=== PATIENT | female | born 1990 | race Caucasian/White ===

== ENCOUNTER 2024-08-02 02:32 | Emergency (ER) | payer OTHER ==
[2024-08-02] MEDS ORDERED: NA CHLORIDE 0.9% 1,000 ML ONE ×2 (03:20→03:58)
[2024-08-02] MEDS ORDERED: FAMOTIDINE 20 MG/2 ML VIAL IV ONE (03:20)
[2024-08-02 03:49] LABS: Specific Gravity 1.029 (1.005-1.030)
[2024-08-02 03:51] LABS: Specific Gravity 1.029 (1.005-1.030); Sqamous Epithelial <5 /HPF (None Seen); Urine Bacteria None Seen /HPF (<20); Urine Bilirubin NEGATIVE (Negative); Urine Blood 3+ (OVER) (Negative); Urine Clarity Turbid (Clear); Urine Color Yellow (Yellow); Urine Culture Reflex Order NOT NEEDED; Urine Glucose NEGATIVE (Negative); Urine Ketones NEGATIVE (Negative); Urine Microscopic Reflex YN ORDER UMIC; Urine Mucus Slight /HPF (None Seen); Urine Nitrite NEGATIVE (Negative); Urine Protein TRACE (Negative); Urine RBC >50 /HPF (None Seen); Urine Urobilinogen Normal (Normal); Urine WBC <5 /HPF (<5)
[2024-08-02] MEDS ORDERED: KETOROLAC 30 MG/ML INJ ONE (03:56)
[2024-08-02] MEDS ORDERED: MORPHINE 4 MG/ML SYR ONE (03:57)
[2024-08-02 04:05] LABS: Albumin 3.9 g/dL (3.4-5.0); Albumin/Globulin Ratio 0.8 (1.1-1.8); Anion Gap 7.2 mEq/L (5.0-15.0); Bilirubin Total 0.6 mg/dL (0.2-1.0); Globulin 4.9 g/dL (2.3-3.5); Potassium 3.2 mEq/L (3.5-5.1); Protein, Total 8.8 g/dL (6.4-8.2)
[2024-08-02 04:11] LABS: Absolute Eosinophils 0.1 K/uL (0-0.5); Absolute Lymphocytes (CBC) 1.7 K/uL (0.7-4.9); Absolute Monocytes 0.6 K/uL (0.1-1.3); Absolute Neutrophil 3.5 K/uL (1.8-8.0); Basophils % 0.3 % (0-1.3); Eosinophils % 0.9 % (0-4.4); Hematocrit 41.4 % (36.0-45.0); Lymphocytes % 29.1 % (15.3-44.8); MCH 29.2 pg (27.0-35.0); MCHC 33.9 g/dL (32.0-36.0); MCV 86.2 fL (80-100); MPV 8.8 fL (7.6-11.3); Neutrophils % 59.7 % (41.7-73.7); Nucleated Red Blood Cells % 0.3 % (0-0); Platelets 248 thou/uL (152-406); Red Cell Distribution Width 13.5 % (12.1-15.2)
--- NOTE | 2024-08-02 05:29 | RAD REPORT ---
EXAM: CT Abdomen and Pelvis With Intravenous Contrast CLINICAL HISTORY: The patient is 33 years old and is Female; ABD PAIN TECHNIQUE: Axial computed tomography images of the abdomen and pelvis with intravenous contrast. Sagittal and coronal reformatted images were created and reviewed. This CT exam was performed using one or more of the following dose reduction techniques: automated exposure control, adjustmen t of the mA and/or kV according to patient size, and/or use of iterative reconstruction technique. COMPARISON: No relevant prior studies available. FINDINGS: Lung bases: Unremarkable. No mass. No consolidation. ABDOMEN: Liver: Unremarkable. No mass. Gallbladder and bile ducts: Unremarkable. No calcified stones. No ductal dilation. Pancreas: Unremarkable. No mass. No ductal dilation. Spleen: Unremarkable. No splenomegaly. Adrenals: Unremarkable. No mass. Kidneys and ureters: 4 mm right UVJ stone. Mild right hydroureteronephrosis. Stomach and bowel: Sigmoid diverticula. No obstruction. No mucosal thickening. PELVIS: Appendix: No findings to suggest acute appendicitis. Bladder: Unremarkable. Reproductive: Unremarkable as visualized. ABDOMEN and PELVIS: Intraperitoneal space: Small amount of free fluid in the pelvis which may be physiologic. No free air. Bones/joints: No acute fracture. No dislocation. Soft tissues: Unremarkable. Vasculature: Unremarkable. No abdominal aortic aneurysm. Lymph nodes: Unremarkable. No enlarged lymph nodes. IMPRESSION: 4 mm right UVJ stone. Mild right hydroureteronephrosis. Electronically signed by: Bear Cosme MD 08/02/2024 05:26 AM [facility] 8 Due to temporary technical issues with the [employer] reporting system, reports are being twin d by the in-house radiologist without review as a courtesy to ensure prompt reporting the interpreting radiologist is fully responsible for the content of the report. Transcribed Date/Time: 08/02/2024 5:29 AM
[2024-08-02] MEDS ORDERED: TAMSULOSIN 0.4 MG SR CAP ONE (05:58)
--- NOTE | 2024-08-02 06:02 | EDPHYS ---
Physician Documentation [facility] Name: Angelita Overton Age: 33 yrs Sex: Female : 1990 Arrival Date: 08/02/2024 Time: 02:32 Bed 14 Private MD: ED Physician You Paez HPI: 08/02 02:42 This 33 yrs old Female presents to ER via Unassigned with complaints of sp4 Abdominal Pain. 08/03 01:30 33-year-old female presents with complaint of abdominal pain right sided abdominal pain sp4 , right lower abdomen. 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 - Infectious Disease History:: Denies. - Social history:: Smoking status: Patient denies any tobacco usage or history of. - Family history:: not pertinent. ROS: 08/03 01:30 Constitutional: Negative for fever, chills, and weight loss, Abdomen/GI: Positive right sp4 lower abdominal pain All other systems are negative, Exam: 01:30 Constitutional: This is a well developed, well nourished patient who is awake, alert, sp4 and in no acute distress. Head/Face: Normocephalic, atraumatic. Eyes: Pupils equal round and reactive to light, extra-ocular motions intact. Lids and lashes normal. Conjunctiva and sclera are not injected. Cornea within normal limits. Periorbital areas with no swelling, redness, or edema. ENT: Nares patent. No nasal discharge, no septal abnormalities noted. Tympanic membranes are normal and external auditory canals are clear. Oropharynx with no redness, swelling, or masses, exudates, or evidence of obstruction, uvula midline. Mucous membranes moist. Neck: Trachea midline, no thyromegaly or masses palpated, and no cervical lymphadenopathy. Supple, full range of motion without nuchal rigidity, or vertebral point tenderness. Chest/axilla: Normal chest wall appearance and motion. Nontender with no deformity. No lesions are appreciated. Cardiovascular: Regular rate and rhythm with a normal S1 and S2. No gallops, murmurs, or rubs. Normal PMI, no JVD. No pulse deficits. Respiratory: Lungs have equal breath sounds bilaterally, clear to auscultation and percussion. No rales, rhonchi or wheezes noted. No increased work of breathing, no retractions or nasal flaring. Abdomen/GI: Soft, with normal bowel sounds. No distension or tympany. No guarding or rebound. No evidence of tenderness throughout. Back: No spinal tenderness. No costovertebral tenderness. Skin: Warm, dry with normal turgor. Normal color with no rashes, no lesions, and no evidence of cellulitis. MS/ Extremity: Pulses equal, no cyanosis. Neurovascular intact. Full, normal range of motion. Neuro: Awake and alert, GCS 15, oriented to person, place, time, and situation. Cranial nerves II-XII grossly intact. Motor strength 5/5 in all extremities. Sensory grossly intact. Psych: Awake, alert, with orientation to person, place and time. Behavior, mood, and affect are within normal limits Vital Signs: 08/02 02:53 BP 139 / 93; Pulse 87; Resp 16; Temp 97.6(O); Pulse Ox 100% on R/A; Pain 7/10; kl 03:41 BP 130 / 88; Pulse 74; Resp 18; Pulse Ox 100% on R/A; ay 04:51 BP 142 / 87; Pulse 88; Resp 18; Pulse Ox 100% on R/A; ay 06:02 BP 137 / 88; Pulse 62; Resp 18; Pulse Ox 100% on R/A; ay 02:53 Pain Scale: Adult kl [place] Coma Score: 03:41 Eye Response: spontaneous(4). Motor Response: obeys commands(6). Verbal Response: ay oriented(5). Total: 15. 08/03 01:30 Eye Response: spontaneous(4). Motor Response: obeys commands(6). Verbal Response: sp4 oriented(5). Total: 15. MDM: 08/02 02:44 Medical Screening Exam initiated sp4 05:59 ED course: EXAM: CTAbdomen and Pelvis With Intravenous Contrast CLINICAL HISTORY: The sp4 patient is 33 years old and is Female; ABD PAIN TECHNIQUE: Axial computed tomography images of the abdomen and pelvis with intravenous contrast. Sagittal and coronal reformatted images were created and reviewed. This CT exam was performed using one or more of the following dose reduction techniques: automated exposure control, adjustment of the mA and/or kV according to patient size, and/or use of iterative reconstruction technique. COMPARISON: No relevant prior studies available. FINDINGS: Lung bases: Unremarkable. No mass. No consolidation. ABDOMEN: Liver: Unremarkable. No mass. Gallbladder and bile ducts: Unremarkable. No calcified stones. No ductal dilation. Pancreas: Unremarkable. No mass. No ductal dilation. Spleen: Unremarkable. No splenomegaly. Adrenals: Unremarkable. No mass. Kidneys and ureters: 4 mm right UVJ stone. Mild right hydroureteronephrosis. Stomach and bowel: Sigmoid diverticula. No obstruction. No mucosal thickening. PELVIS: Appendix: No findings to suggest acute appendicitis. Bladder: Unremarkable. Reproductive: Unremarkable as visualized. ABDOMEN and PELVIS: Intraperitoneal space: Small amount of free fluid in the pelvis which may be physiologic. No free air. Bones/joints: No acute fracture. No dislocation. Soft tissues: Unremarkable. Vasculature: Unremarkable. No abdominal aortic aneurysm. Lymph nodes: Unremarkable. No enlarged lymph nodes. IMPRESSION: 4 mm right UVJ stone. Mild right hydroureteronephrosis. . 08/03 01:30 Differential diagnosis: appendicitis, bowel obstruction, cholecystitis, Cholelithiasis, sp4 diverticulitis, Dysmenorrhea. Data reviewed: vital signs, nurses notes, lab test result(s), CBC, electrolytes, hepatic panel, urinalysis, radiologic studies, CT scan. Consideration of Admission/Observation Escalation of care including admission/observation considered. ED course: Stable for discharge home.. 01:32 ED course: Patient prescribed [place] 10 1 tab every 6 hours as needed pain total of 20 sp4 tabs. 08/02 02:43 Order name: CBC with Diff; Complete Time: 05:52 sp4 08/02 02:43 Order name: CMP; Complete Time: 05:52 sp4 08/02 02:43 Order name: Lipase; Complete Time: 05:52 sp4 08/02 02:43 Order name: Test, Urine; Complete Time: 05:52 sp4 08/02 02:43 Order name: Urinalysis w/ reflexes; Complete Time: 05:52 sp4 08/02 03:38 Order name: CT Abd/Pelvis - IV Contrast Only sp4 08/02 02:43 Order name: IV Saline Lock; Complete Time: 03:34 sp4 08/02 02:43 Order name: Labs collected and sent; Complete Time: 03:34 sp4 Administered Medications: 08/02 06:17 Discontinued: ns 0.9% 1000 ml IV at 125 ml/hr continuous ay 03:34 Drug: Famotidine IVP 20 mg IVP once; dilute with 10 mL 0.9% NaCl; give over 2 minutes bm8 Route: IVP; Site: right antecubital; 04:48 Follow up: Response: No adverse reaction ay 03:34 Drug: NS 0.9% IV 1000 ml IV at 1 bolus Per protocol; to be given as a bolus over 60 bm8 minutes Route: IV; Rate: 1 bolus; Site: right antecubital; 05:22 Follow up: IV Status: Completed infusion; IV Intake: 1000ml ay 04:16 Drug: Ketorolac IVP 30 mg IVP once Route: IVP; Site: right antecubital; ay 04:34 Follow up: Response: No adverse reaction ay 05:23 Follow up: Response: Pain is decreased ay 04:17 Drug: morphine IVP or IV 4 mg IVP once over 4 mins Route: IVP; Infused Over: 4 mins; ay Site: right antecubital; 04:34 Follow up: Response: No adverse reaction ay 05:23 Follow up: Response: Pain is decreased ay 19:49 Follow up: Response: No adverse reaction; Pain is decreased bm8 05:21 Drug: NS 0.9% IV 1000 ml IV at 125 ml/hr continuous Route: IV; Rate: 125 ml/hr; Site: ay right antecubital; 05:28 Follow up: Response: No adverse reaction ay 06:23 Follow up: IV Status: Completed infusion; IV Intake: 250ml ay 06:01 Drug: Flomax PO 0.8 mg PO once Route: PO; ay 06:15 Follow up: Response: No adverse reaction ay Disposition Summary: 08/02/24 06:02 Discharge Ordered Notes: Location: Home sp4 Problem: new sp4 Symptoms: have improved sp4 Condition: Fair sp4 Diagnosis - Acute right ureteral calculus with right hydronephrosis sp4 Followup: sp4 - With: Private Physician - When: 7 - 10 days - Reason: Recheck today's complaints Discharge Instructions: - Discharge Summary Sheet sp4 - Kidney Stones, [id number] sp4 Forms: - Patient Portal Instructions sp4 Prescriptions: - Flomax 0.4 mg Oral capsule - take 1 capsule ORAL route daily for 10 days; 10 capsule; Refills: 0, Product sp4 Selection Permitted - Ibuprofen 800 mg Oral Tablet - take 1 tablet ORAL route every 8 hours As needed take with food; 30 tablet; sp4 Refills: 0, Product Selection Permitted - ondansetron 8 mg Oral Tablet,disintegrating - take 1 tablet ORAL route every 8 hours PRN nausea; 30 tablet; Refills: 0, sp4 Product Selection Permitted Signatures: Dispatcher [employer] EDDinorah Lockwood, RN RN You Lindsey MD MD sp4 Bill Mata RN RN bm8 Dwayne Shi RN RN ay Corrections: (The following items were deleted from the chart) 02:44 02:44 CBC+H.LAB.BRZ ordered. EDMS EDMS 02:44 02:44 COMPREHENSIVE METABOLIC PANEL+C.LAB.BRZ ordered. EDMS EDMS 02:44 02:44 LIPASE+C.LAB.BRZ ordered. EDMS EDMS 02:44 02:44 Test, Urine+UC.LAB.BRZ ordered. EDMS EDMS 02:44 02:44 Urinalysis+U.LAB.BRZ ordered. EDMS EDMS
--- NOTE | 2024-08-02 06:02 | ER ---
Nurse's Notes [facility] Name: Angelita Overton Age: 33 yrs Sex: Female : 1990 Arrival Date: 08/02/2024 Time: 02:32 Bed 14 Private MD: Diagnosis: Acute right ureteral calculus with right hydronephrosis Presentation: 08/02 02:53 Chief complaint: Patient states: right lower quadrant pain since yesterday positive for kl nausea denies urinary symptoms. Coronavirus screen: Vaccine status: Patient reports receiving the 2nd dose of the covid vaccine. Ebola Screen: Patient negative for fever greater than or equal to 101.5 degrees Fahrenheit, and additional compatible Ebola Virus Disease symptoms. Initial Sepsis Screen: Does the patient meet any 2 criteria? No. Patient's initial sepsis screen is negative. Does the patient have a suspected source of infection? No. Patient's initial sepsis screen is negative. Risk Assessment: Do you want to hurt yourself or someone else? Patient reports no desire to harm self or others. 02:53 Method Of Arrival: Ambulatory kl 02:53 Acuity: ANDRÉS 3 kl 02:57 Note pt 3 months post . kl 06:20 Onset of symptoms is unknown. ay Triage Assessment: 06:20 General: Appears uncomfortable. 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 - Infectious Disease History:: Denies. - Social history:: Smoking status: Patient denies any tobacco usage or history of. - Family history:: not pertinent. Screenin:41 [facility] ED Fall Risk Assessment (Adult) History of falling in the last 3 months, ay including since admission No falls in past 3 months (0 pts) Confusion or Disorientation No (0 pts) Intoxicated or Sedated No (0 pts) Impaired Gait No (0 pts) Mobility Assist Device Used No (0 pt) Altered Elimination No (0 pt) Score/Fall Risk Level 0 - 2 = Low Risk Oriented to surroundings, Maintained a safe environment, Educated pt \T\ family on fall prevention, incl call for assistance when getting out of bed. Abuse screen: Denies threats or abuse. Nutritional screening: No deficits noted. Tuberculosis screening: No symptoms or risk factors identified. Assessment: 03:41 General: Appears uncomfortable, obese, Behavior is calm, cooperative. Pain: Complains ay of pain in abdomen Pain currently is 7 out of 10 on a pain scale. Neuro: Level of Consciousness is awake, alert, obeys commands, Oriented to person, place, time, situation, Information Systems Specialist are equal bilaterally Gait is steady, Speech is normal. Cardiovascular: Heart tones S1 S2. Respiratory: Airway is patent Respiratory effort is even, unlabored. GI: Bowel sounds present X 4 quads. Abd is soft Abdomen is tender to palpation. : No signs and/or symptoms were reported regarding the genitourinary system. EENT: No signs and/or symptoms were reported regarding the EENT system. Derm: No signs and/or symptoms reported regarding the dermatologic system. Musculoskeletal: No signs and/or symptoms reported regarding the musculoskeletal system. 03:49 Reassessment: pt with a c/o abd pain, alert and oriented x4, on RA, bowel sounds in all ay quadrants, pain score 7/10. Call light within reach. No distress noted. 04:52 Reassessment: Patient states feeling better. Pain: Pain currently is 2 out of 10 on a ay pain scale. 06:02 Reassessment: Patient appears in no apparent distress at this time. ay Vital Signs: 02:53 BP 139 / 93; Pulse 87; Resp 16; Temp 97.6(O); Pulse Ox 100% on R/A; Pain 7/10; kl 03:41 BP 130 / 88; Pulse 74; Resp 18; Pulse Ox 100% on R/A; ay 04:51 BP 142 / 87; Pulse 88; Resp 18; Pulse Ox 100% on R/A; ay 06:02 BP 137 / 88; Pulse 62; Resp 18; Pulse Ox 100% on R/A; ay 02:53 Pain Scale: Adult kl [place] Coma Score: 03:41 Eye Response: spontaneous(4). Motor Response: obeys commands(6). Verbal Response: ay oriented(5). Total: 15. 08/03 01:30 Eye Response: spontaneous(4). Motor Response: obeys commands(6). Verbal Response: sp4 oriented(5). Total: 15. ED Course: 08/02 02:35 Patient arrived in ED. gm2 02:42 You Paez MD is Attending Physician. sp4 02:56 Triage completed. kl 03:06 Dwayne Shi, KASEY is Primary Nurse. ay 03:41 Patient has correct armband on for positive identification. Placed in gown. Bed in low ay position. Call light in reach. Side rails up X 1. 03:41 No provider procedures requiring assistance completed. Inserted saline lock: 20 gauge ay in right antecubital area, using aseptic technique. Patient maintains SpO2 saturation greater than 95% on room air. 04:36 CT Abd/Pelvis - IV Contrast Only In Process Unspecified. EDMS 06:17 Provided Education on: Procedure Consent. ay 06:17 IV discontinued, intact, bleeding controlled, No redness/swelling at site. Pressure ay dressing applied. 06:19 Arm band placed on right wrist. ay Administered Medications: 06:17 Discontinued: ns 0.9% 1000 ml IV at 125 ml/hr continuous ay 03:34 Drug: Famotidine IVP 20 mg IVP once; dilute with 10 mL 0.9% NaCl; give over 2 minutes bm8 Route: IVP; Site: right antecubital; 04:48 Follow up: Response: No adverse reaction ay 03:34 Drug: NS 0.9% IV 1000 ml IV at 1 bolus Per protocol; to be given as a bolus over 60 bm8 minutes Route: IV; Rate: 1 bolus; Site: right antecubital; 05:22 Follow up: IV Status: Completed infusion; IV Intake: 1000ml ay 04:16 Drug: Ketorolac IVP 30 mg IVP once Route: IVP; Site: right antecubital; ay 04:34 Follow up: Response: No adverse reaction ay 05:23 Follow up: Response: Pain is decreased ay 04:17 Drug: morphine IVP or IV 4 mg IVP once over 4 mins Route: IVP; Infused Over: 4 mins; ay Site: right antecubital; 04:34 Follow up: Response: No adverse reaction ay 05:23 Follow up: Response: Pain is decreased ay 19:49 Follow up: Response: No adverse reaction; Pain is decreased bm8 05:21 Drug: NS 0.9% IV 1000 ml IV at 125 ml/hr continuous Route: IV; Rate: 125 ml/hr; Site: ay right antecubital; 05:28 Follow up: Response: No adverse reaction ay 06:23 Follow up: IV Status: Completed infusion; IV Intake: 250ml ay 06:01 Drug: Flomax PO 0.8 mg PO once Route: PO; ay 06:15 Follow up: Response: No adverse reaction ay Medication: 03:41 VIS not applicable for this client. ay Intake: 05:22 IV: 1000ml; Total: 1000ml. ay 06:23 IV: 250ml; Total: 1250ml. ay Outcome: 06:02 Discharge ordered by MD. grullon 06:17 Discharged to home ambulatory, ay 06:17 Condition: stable 06:17 Discharge instructions given to patient, Instructed on discharge instructions, follow up and referral plans. medication usage, 06:24 Patient left the ED. ay Signatures: Dispatcher [employer] Dinorah Escalona RN RN kl Potepalov, Sergey, MD MD sp4 Abida Martinez 2 Bill Mata RN RN bm8 Dwayne Shi RN RN ay Corrections: (The following items were deleted from the chart) 19:49 05:23 Response: Pain is decreased ay bm8
[2024-08-02 07:06] VITALS: TEMP 97.6; O2SAT 100
[2024-08-02 07:09] VITALS: BP 137/88
== END 2024-08-02 06:24 | disposition home or self-care (01) ==
LOC: ER 02:32
DX: N13.2 Hydronephrosis with renal and ureteral calculous obstruction (principal)
CPT/HCPCS: 96361; 85025; 81001; 36415; 81025; 83690; 80053; 74177; 96375; 96374; 99284; Q9967; J7030 ×2

== ENCOUNTER 2024-08-13 18:34 | Emergency (ER) | payer OTHER ==
[2024-08-13] MEDS ORDERED: ONDANSETRON 4 MG/2 ML VIAL ONE (19:25)
[2024-08-13] MEDS ORDERED: MORPHINE 4 MG/ML SYR ONE (19:26)
[2024-08-13] MEDS ORDERED: NA CHLORIDE 0.9% 1,000 ML ONE (19:26)
[2024-08-13 19:37] LABS: Absolute Lymphocytes (CBC) 2.1 K/uL (0.7-4.9); Absolute Monocytes 0.7 K/uL (0.1-1.3); Absolute Neutrophil 5.3 K/uL (1.8-8.0); Basophils % 0.6 % (0-1.3); Eosinophils % 0.3 % (0-4.4); Hematocrit 40.2 % (36.0-45.0); Hemoglobin 13.5 g/dL (12.0-15.0); Lymphocytes % 25.4 % (15.3-44.8); MCH 28.6 pg (27.0-35.0); MCHC 33.4 g/dL (32.0-36.0); MCV 85.7 fL (80-100); MPV 7.7 fL (7.6-11.3); Monocytes % 8.7 % (3.3-12.3); Nucleated Red Blood Cells % 0.2 % (0-0); Platelets 320 thou/uL (152-406)
[2024-08-13 19:48] LABS: Specific Gravity 1.013 (1.005-1.030); Sqamous Epithelial <5 /HPF (None Seen); Urine Bacteria <20 /HPF (<20); Urine Bilirubin NEGATIVE (Negative); Urine Blood 3+ (Negative); Urine Clarity Turbid (Clear); Urine Color Light-Yellow (Yellow); Urine Culture Reflex Order NOT NEEDED; Urine Glucose NEGATIVE (Negative); Urine Ketones NEGATIVE (Negative); Urine Microscopic Reflex YN ORDER UMIC; Urine Mucus Slight /HPF (None Seen); Urine Nitrite NEGATIVE (Negative); Urine Protein NEGATIVE (Negative); Urine RBC >50 /HPF (None Seen); Urine Urobilinogen Normal (Normal); Urine WBC <5 /HPF (<5); Urine pH 5.5 (5.0-7.0)
[2024-08-13 19:57] LABS: Specific Gravity 1.013 (1.005-1.030)
--- NOTE | 2024-08-13 20:07 | RAD REPORT ---
EXAMINATION: CT Stone Protocol CLINICAL INDICATION: Female, 33 years old. ABD PAIN TECHNIQUE: CT abdomen and pelvis was performed, without IV contrast, as per department protocol. Axia l, sagittal and coronal reconstructions were obtained. One or more of the following dose reduction techniques were used: Automated exposure control, adjustment of the mA and kV according to the patien t size, and iterative reconstruction. Unless otherwise specified, incidental findings do not require dedicated imaging follow-up. COMPARISON: 08/02/2024 FINDINGS: The lack of intravenous contrast limits the sensitivity of this exam for evaluation of solid visceral organs, vascular structures, and retroperitoneum. LOWER CHEST: The visualized lung bases are clear. LIVER: Normal in size and contour. No focal lesion. BILIARY SYSTEM: No suspicious abnormalities. SPLEEN: Normal size. No focal lesion. PANCREAS: No mass, ductal dilation, or shelia-pancreatic fluid. ADRENALS: Normal; no mass. KIDNEYS AND URETERS: Normal size and contour. Mild to moderate right hydroureteronephrosis. 3-4 mm ca lculus seen previously at the vesicoureteral junction is now more medially situated, and therefore may have recently passed. No left hydronephrosis. 3 mm left interpolar nonobstructing calculus. URINARY BLADDER: Normal contour. Small calculus as above. GASTROINTESTINAL TRACT: No evidence of bowel obstruction, significant free fluid, free air or abscess . APPENDIX: Normal appendix. LYMPH NODES: No lymphadenopathy. MUSCULOSKELETAL: No acute or suspicious osseous abnormality. ADDITIONAL FINDINGS: Retroverted uterus. IMPRESSION: More medial location of the 3-4 MM calculus within the bladder, may have passed the right vesicourete ral junction. Stable mild to moderate right hydroureteronephrosis. Nonobstructing 3 mm left interpolar calculus.
[2024-08-13 20:15] LABS: Albumin 3.8 g/dL (3.4-5.0); Albumin/Globulin Ratio 0.9 (1.1-1.8); Anion Gap 9.7 mEq/L (5.0-15.0); Bilirubin Total 0.4 mg/dL (0.2-1.0); Globulin 4.2 g/dL (2.3-3.5); Potassium 3.7 mEq/L (3.5-5.1)
--- NOTE | 2024-08-13 20:27 | ER ---
Nurse's Notes [facility] Name: Angelita Overton Age: 33 yrs Sex: Female : 1990 Arrival Date: 08/13/2024 Time: 18:34 Bed 6 Private MD: Diagnosis: Calculus of kidney Presentation: 08/13 18:49 Chief complaint: Lower abdominal pain and difficulty urinating x 2 days. Recently seen hb in ED for kidney stone. Coronavirus screen: At this time, the client does not indicate any symptoms associated with coronavirus-19. Ebola Screen: No symptoms or risks identified at this time. Initial Sepsis Screen: Does the patient meet any 2 criteria? No. Patient's initial sepsis screen is negative. Does the patient have a suspected source of infection? No. Patient's initial sepsis screen is negative. Risk Assessment: Do you want to hurt yourself or someone else? Patient reports no desire to harm self or others. Onset of symptoms was August 12, 2024. 18:49 Method Of Arrival: Ambulatory hb 18:49 Acuity: ANDRÉS [address] CLERK: 20:55 unknown mt4 Historical: - Allergies: 18:52 No Known Allergies; hb - PMHx: 18:52 Hypothyroidism; hb - PSHx: 18:52 None; hb - Immunization history:: Adult Immunizations up to date. - Infectious Disease History:: Denies. - Social history:: Smoking status: Patient denies any tobacco usage or history of. Screenin:34 [facility] ED Fall Risk Assessment (Adult) History of falling in the last 3 months, mt4 including since admission No falls in past 3 months (0 pts) Confusion or Disorientation No (0 pts) Intoxicated or Sedated No (0 pts) Impaired Gait No (0 pts) Mobility Assist Device Used No (0 pt) Altered Elimination No (0 pt) Score/Fall Risk Level 0 - 2 = Low Risk. Abuse screen: Denies injuries from another. Nutritional screening: No deficits noted. Tuberculosis screening: No symptoms or risk factors identified. Exposure risk/Travel Screening: None identified. Assessment: 19:34 General: Appears in no apparent distress. comfortable, Behavior is calm, cooperative, mt4 appropriate for age. Pain: Complains of pain in pelvis Pain currently is 5 out of 10 on a pain scale. Quality of pain is described as burning, aching, pressure, Pain began since thanksgiving. Neuro: Level of Consciousness is awake, alert, obeys commands, Oriented to person, place, time, situation, Knotting Machine Operator are equal bilaterally Moves all extremities. Gait is steady, Speech is normal, Facial symmetry appears normal. Cardiovascular: Capillary refill < 3 seconds. Respiratory: Airway is patent Respiratory effort is even, unlabored, Respiratory pattern is regular, symmetrical. GI: Bowel sounds present X 4 quads. Abd is soft in suprapubic area Abdomen is tender to palpation. : Urine is clear, Reports burning with urination, pain difficulty voiding. EENT:. Derm: Skin is intact, Skin is dry, Skin is pink, warm \T\ dry. Skin temperature is warm. Musculoskeletal: Capillary refill < 3 seconds, Range of motion: intact in all extremities. Vital Signs: 18:49 BP 144 / 109; Pulse 106; Resp 16; Temp 98.1(O); Pulse Ox 100% on R/A; Weight 86.18 kg; hb Height 5 ft. 2 in. ; Pain 5/10; 19:52 BP 141 / 100; Pulse 91; Resp 18 S; Temp 97.9(O); Pulse Ox 100% on R/A; Pain 5/10; mt4 20:53 BP 130 / 89; Pulse 84; Pulse Ox 99% ; mt4 18:49 Body Mass Index 34.75 (86.18 kg, 157.48 cm) hb 18:49 Pain Scale: Adult hb 19:52 Pain Scale: Adult mt4 [place] Coma Score: 19:34 Eye Response: spontaneous(4). Motor Response: obeys commands(6). Verbal Response: mt4 oriented(5). Total: 15. ED Course: 18:36 Patient arrived in ED. mr 18:39 Jose Carlos LizetteCADEN parson [facility] kb 18:39 Moises Kennedy MD is Attending Physician. kb 18:52 Triage completed. hb 18:52 Arm band placed on. hb 19:22 CT Stone Protocol In Process Unspecified. EDMS 19:23 Pao Spears, KASEY is Primary Nurse. mt4 19:33 No provider procedures requiring assistance completed. Initial lab(s) drawn, by zaheer mcnally sent to lab. Inserted saline lock: 20 gauge in right antecubital area, using aseptic technique. Blood collected. Flushed with 10 mL NS. Patient maintains SpO2 saturation greater than 95% on room air. 19:34 No apparent distress. Resting quietly. Awaiting lab results. mt4 19:34 Patient has correct armband on for positive identification. Bed in low position. Call mt4 light in reach. Side rails up X 1. Provided Education on: pain medication . Client placed on continuous cardiac and pulse oximetry monitoring. NIBP monitoring applied. Door closed. Lights dimmed. Warm blanket given. Pillow given. Verbal reassurance given. Assisted to bathroom. 19:34 Patient maintains SpO2 saturation greater than 95% on room air. mt4 20:54 IV discontinued, intact, bleeding controlled, No redness/swelling at site. Pressure mt4 dressing applied. Patient maintains SpO2 saturation greater than 95% on room air. Administered Medications: 19:54 Drug: Ondansetron IVP 4 mg IVP once; over 2 minutes Route: IVP; Site: right antecubital;mt4 20:48 Follow up: Response: No adverse reaction mt4 19:54 Drug: morphine IVP or IV 4 mg IVP once over 4 mins Route: IVP; Infused Over: 4 mins; mt4 Site: right antecubital; 20:48 Follow up: Response: No adverse reaction mt4 19:54 Drug: NS 0.9% IV 1000 ml IV at 1 bolus Per protocol; to be given as a bolus over 60 mt4 minutes Route: IV; Rate: 1 bolus; Site: right antecubital; 20:48 Follow up: Response: No adverse reaction; IV Status: Completed infusion; IV Intake: mt4 1000ml Medication: 19:34 VIS not applicable for this client. mt4 Intake: 20:48 IV: 1000ml; Total: 1000ml. mt4 Outcome: 20:26 Discharge ordered by . nori 20:54 Condition: stable mt4 20:54 Discharge instructions given to patient, Instructed on discharge instructions, follow up and referral plans. medication usage, Demonstrated understanding of instructions, follow-up care, medications, 20:54 Prescriptions given X 1, 20:55 Discharged to home ambulatory, mt4 20:55 Patient left the ED. mt4 Signatures: Dispatcher [employer] EDME Lizette Branch, MARCIE-C APPAREL MACHINERY INSTRUCTOR-Jayne Kendrick, Radha Bryan, RN RN hb Bill Mata, RN RN bm8 [facility], [facility], RN RN mt4
--- NOTE | 2024-08-13 20:27 | EDPHYS ---
Physician Documentation [facility] Name: Angelita Overton Age: 33 yrs Sex: Female : 1990 Arrival Date: 08/13/2024 Time: 18:34 Bed 6 Private MD: ED Physician Moises Kennedy HPI: 08/13 19:03 This 33 yrs old Female presents to ER via Ambulatory with complaints of Possible Kidney kb Stone. 19:03 Pt is a 33 year old female who presents for suprapubic pain and difficulty urinating. kb States she was diagnosed with a kidney stone on Thanksgiving, was given flomax which improved the symptoms. States the back pain never returned but she developed pain to suprapubic area. States her pain got worse today. . [employer]: 20:55 unknown mt4 Historical: - Allergies: 18:52 No Known Allergies; hb - PMHx: 18:52 Hypothyroidism; hb - PSHx: 18:52 None; hb - Immunization history:: Adult Immunizations up to date. - Infectious Disease History:: Denies. - Social history:: Smoking status: Patient denies any tobacco usage or history of. ROS: 19:02 Constitutional: As per HPI kb Exam: 19:02 Constitutional: This is a well developed, well nourished patient who is awake, alert, kb and in no acute distress. Head/Face: Normocephalic, atraumatic. ENT: Moist Mucous membranes Cardiovascular: Regular rate Respiratory: Respirations even and unlabored. No increased work of breathing. Talking in full sentences Back: No spinal tenderness. No costovertebral tenderness. Full range of motion. Skin: Warm, dry with normal turgor. Normal color. MS/ Extremity: Pulses equal, no cyanosis. Neurovascular intact. Full, normal range of motion. Neuro: Awake and alert, GCS 15, oriented to person, place, time, and situation. 19:02 Abdomen/GI: Inspection: abdomen appears normal, Bowel sounds: normal, Palpation: soft, in all quadrants, mild abdominal tenderness, in the suprapubic area, Vital Signs: 18:49 BP 144 / 109; Pulse 106; Resp 16; Temp 98.1(O); Pulse Ox 100% on R/A; Weight 86.18 kg; hb Height 5 ft. 2 in. ; Pain 5/10; 19:52 BP 141 / 100; Pulse 91; Resp 18 S; Temp 97.9(O); Pulse Ox 100% on R/A; Pain 5/10; mt4 20:53 BP 130 / 89; Pulse 84; Pulse Ox 99% ; mt4 18:49 Body Mass Index 34.75 (86.18 kg, 157.48 cm) hb 18:49 Pain Scale: Adult hb 19:52 Pain Scale: Adult mt4 [place] Coma Score: 19:34 Eye Response: spontaneous(4). Motor Response: obeys commands(6). Verbal Response: mt4 oriented(5). Total: 15. MDM: 18:39 Medical Screening Exam initiated kb 19:03 Data reviewed: vital signs, nurses notes. kb 20:25 Differential diagnosis: UTI, kidney stone. Counseling: I had a detailed discussion with kb the patient and/or guardian regarding the historical points, exam findings, and any diagnostic results supporting the discharge/admit diagnosis, lab results, radiology results, the need for outpatient follow up, a family practitioner, to return to the emergency department if symptoms worsen or persist or if there are any questions or concerns that arise at home. 08/13 18:40 Order name: Test, Urine; Complete Time: 20:00 kb 08/13 18:40 Order name: Urinalysis w/ reflexes; Complete Time: 19:50 kb 08/13 18:52 Order name: CBC with Diff; Complete Time: 19:46 kb 08/13 18:52 Order name: CMP; Complete Time: 20:16 kb 08/13 19:31 Order name: Test, Serum; Complete Time: 20:16 bm8 08/13 18:52 Order name: CT Stone Protocol; Complete Time: 20:16 kb 08/13 18:52 Order name: IV Saline Lock; Complete Time: 19:33 kb 08/13 18:52 Order name: Labs collected and sent; Complete Time: 19:33 kb Administered Medications: 19:54 Drug: Ondansetron IVP 4 mg IVP once; over 2 minutes Route: IVP; Site: right antecubital;mt4 20:48 Follow up: Response: No adverse reaction mt4 19:54 Drug: morphine IVP or IV 4 mg IVP once over 4 mins Route: IVP; Infused Over: 4 mins; mt4 Site: right antecubital; 20:48 Follow up: Response: No adverse reaction mt4 19:54 Drug: NS 0.9% IV 1000 ml IV at 1 bolus Per protocol; to be given as a bolus over 60 mt4 minutes Route: IV; Rate: 1 bolus; Site: right antecubital; 20:48 Follow up: Response: No adverse reaction; IV Status: Completed infusion; IV Intake: mt4 1000ml Disposition Summary: 08/13/24 20:26 Discharge Ordered Notes: Location: Home kb Condition: Stable kb Diagnosis - Calculus of kidney kb Followup: kb - With: Emergency Department - When: As needed - Reason: Worsening of condition Followup: kb - With: Private Physician - When: 2 - 3 days - Reason: Recheck today's complaints, Continuance of care, Re-evaluation by your physician Discharge Instructions: - Discharge Summary Sheet kb - Kidney Stones, [id number] kb Forms: - Medication Reconciliation Form kb - Antibiotic Education kb - Prescription Opioid Use kb - Patient Portal Instructions kb - Leadership Thank You Letter kb Prescriptions: - Diclofenac Sodium 75 mg Oral tablet, delayed release (enteric coated) - take 1 tablet ORAL route 2 times per day As needed; 30 tablet; Refills: 0, kb Product Selection Permitted Signatures: Dispatcher [employer] Lizette Contreras, QUARTZ MOUNTER-C QUARTZ MOUNTER-Radha Palencia, RN RN Pao Spears, RN RN mt4 Corrections: (The following items were deleted from the chart) 18:53 18:52 Stone Protocol+[id number] ordered. EDMS EDMS
[2024-08-14 03:06] VITALS: TEMP 97.9
[2024-08-14 03:07] VITALS: BP 130/89; O2SAT 99
== END 2024-08-13 20:55 | disposition home or self-care (01) ==
LOC: ER 18:34
DX: N20.0 Calculus of kidney (principal)
CPT/HCPCS: 96361; 85025; 81001; 36415; 84703; 81025; 80053; 76377; 74176; 96375; 96374; 99284; J2405; J7030